=== PATIENT | male | born 1985 ===

== ENCOUNTER 2018-01-11 12:22 | Emergency (ER) | payer OTHER ==
[~2018-01-11] VITALS: Ht 180.3 cm; Wt 97.0 kg
[2018-01-11 12:47] VITALS: BP 149/88
[2018-01-11] MEDS ORDERED: IBUPROFEN 200 MG TABLET PO ONE (14:00)
[2018-01-11] MEDS ORDERED: IBUPROFEN 200 MG TABLET ONE (14:03)
== END 2018-01-11 14:50 | disposition home or self-care (01) ==
LOC: ED 13:00
DX: S86.211A Strain of muscle(s) and tendon(s) of anterior muscle group at lower leg level, right leg, initial encounter (principal); S80.01XA Contusion of right knee, initial encounter; W18.39XA Other fall on same level, initial encounter; Y93.21 Activity, ice skating; Y92.89 Other specified places as the place of occurrence of the external cause; Y99.8 Other external cause status
CPT/HCPCS: 99284